=== PATIENT | male | born 1950 | race African-American/Black ===

== ENCOUNTER 2016-07-19 19:51 | Inpatient (IN) ==
--- NOTE | 2016-07-19 20:00 | Emergency Department Note ---
Disposition Clinical Impression: Acute exacerbation of CHF (congestive heart failure) Qualifiers: Congestive heart failure type: unspecified congestive heart failure type Qualified Code(s): I50.9 - Heart failure, unspecified Chest pain Qualifiers: Chest pain type: unspecified Qualified Code(s): R07.9 - Chest pain, unspecified Dyspnea Qualifiers: Dyspnea type: shortness of breath Qualified Code(s): R06.02 - Shortness of breath Disposition: Admitted As Inpatient Condition: Critical [facility]errals: [facility]Primary Care Provider[facility] - Forms: ED Satisfaction Letter Time of Disposition: 21:37 Chest Pain HPI - General Chief Complaint: ED Chest Pain Stated Complaint: CP Time Seen by Provider: 07/19/16 19:58 Vital Signs Reviewed: Yes Nursing Notes Reviewed: Yes - History of Present Illness HPI Narrative: Mr. Lugo, 65-year-old male, arrives from the [facility] via EMS with chief complaint of chest pain. Patient is having conversational dyspnea with substantial increased work of breathing thus limiting history of present illness. History of present illness obtained from [facility] paperwork: Chest pain with radiation to throat and neck onset 3 PM today with increased generalized swelling. PMH: Diabetes, hypertension, obesity, COPD, congestive heart failure, hepatitis C, paranoid schizophrenia [facility] paperwork shows no mention of CAD or ACS. Allergies: Thorazine, tomatoes- - Related Data Allergies Allergy/AdvReac Type Severity Reaction Status Date / Time chlorpromazine Allergy Anaphylaxis Verified 07/19/16 19:56 [From Thorazine] Limitations: ROS unobtainable due to patients medical condition Physical Exam Vital Signs Reviewed: Patient tachypneic and hypertensive. Not hypoxic on BiPAP. General: Patient is alert, oriented, and in acute distress - accessory muscle use for breathing with 2 word conversational dyspnea. HEENT: No facial asymmetry. Head is normocephalic and atraumatic. PERRLA, EOMI. trachea midline. Cardiovascular: Heart regular rate and rhythm without clicks, rubs, gallops, or murmurs. No JVD. PMI nondisplaced. Bilateral 2+ pedal edema. Nonpitting bilateral edema on dorsum of patient's hands. Bilateral radial and posterior tibial pulses equal and 2/4. Respiratory: Symmetric chest rise with poor respiratory effort. Bilateral breath sounds are diminished with scattered wheezing and bilateral basilar coarse lung sounds. Abdomen: Obese. Bowel sounds present normoactive x-4 quadrants. Abdomen is soft, nondistended, and nontender. To assess organomegaly given patient's body habitus. Psych: Patient's affect is appropriate for situation. Course Course Narrative: Per [facility] documentation: WBC 9.5 Hgb 9.8 HCT 29.3 NA 125 K5.0 CL 90 CO2 20 Glucose 207 BUNs 28 Creatinine 1.54 BNP 6396 Troponin 0.00 Patient has symptomatically improved with BiPAP and IV nitroglycerin which his blood pressure tolerated well. Spoke with the admitting hospitalist, Dr. Ochoa who agrees to accept the patient for acute exacerbation of congestive heart failure with concomitant rule out ACS. Vital Signs Temperature 97.7 F 07/19/16 19:56 Pulse Rate 78 07/19/16 19:56 Respiratory Rate 25 07/19/16 19:56 Blood Pressure 191/97 07/19/16 19:56 O2 Sat by Pulse Oximetry 92 07/19/16 19:56 Temperature 97.7 F 07/19/16 19:56 Pulse Rate 80 07/19/16 21:15 Respiratory Rate 22 07/19/16 21:15 Blood Pressure 183/91 07/19/16 21:15 O2 Sat by Pulse Oximetry 98 07/19/16 21:15 Oxygen Delivery Oxygen Delivery Bipap Heart Score - Score History: Slightly Suspicious EKG: Non Specific repolarisation Disturbance Age: 45-65 Risk Factors: Equal/Greater than 3 risk factor or history of atherosclerotic disease Troponin: Less than normal limit HEART Score Total: 4
[2016-07-19] MEDS ORDERED: Nitroglycerin 25 MG/250 ML INFUS..BTL IVC SCH (20:15)
--- NOTE | 2016-07-19 20:56 | Emergency Department Note ---
START Narrative - START START: I examined this patient and my medical decision-making was reviewed with the LOMBARDI DEVELOPER/PA/Advanced Practice Nurse/Resident Physician. I agree with the documented findings, disposition and treatment plan as described except to the extent set forth below. ED attending note: Patient seen with emergency medicine resident Dr Hudson. We independently evaluated the patient. We independently had [id number] contact with the patient. Please see a copy of his note for details of the history and physical, evaluation, management and disposition of this emergency Department patient. Briefly: 65-year-old transferred from the [facility] with a history of CAD stents and CHF presents with chest pain and negative troponin A BNP in the thousands and a chest x-ray consistent with CHF transferred here for ACS rule out. Patient is awake and alert and appropriate with stable vital signs placed on BiPAP. Patient was admitted to the hospitalist service. We have provided 40 minutes of critical care services for this patient with nitroglycerin drip. Admitted in stable condition for CHF exacerbation and chest pain acute coronary syndrome rule out.
[2016-07-19] MEDS ORDERED: Furosemide 40 MG/4 ML VIAL ONE (23:04)
[2016-07-19] MEDS ORDERED: Naloxone 0.4 MG/ML INJ IVP PRN (23:16)
[2016-07-19] MEDS ORDERED: Furosemide 40 MG/4 ML VIAL IVP ONE (23:21)
[2016-07-19] MEDS ORDERED: Acetaminophen 325 MG TABLET PO PRN (23:23)
[2016-07-19] MEDS ORDERED: Dextrose Gel 15 GM PO PRN ×2 (23:31)
[2016-07-19] MEDS ORDERED: D5% in Water 1,000 ML IVC PRN (23:31)
[2016-07-19] MEDS ORDERED: *HR* Dextrose 50 % in Water (Syg) 50 ML SYRINGE IVP PRN (23:31)
[2016-07-19] MEDS ORDERED: Insulin DETEMIR 100 UNIT/ML X5UNITS SQ SCH (23:45)
--- NOTE | 2016-07-19 23:51 | Internal Med History&Physical ---
Date of Encounter: 07/19/16 Time of Encounter: 23:43 Assessment and Plan (1) Acute respiratory failure Current visit: Yes Status: Acute Patient with respiratory distress, accessory muscle use, tachypnea, secondary to CHF exacerbation. Respiratory consulted for Bipap Stat ABG diuresis with lasix continuous dishwasher busser and pulse oximetry Qualifiers: Respiratory failure complication: unspecified whether with hypoxia or hypercapnia Qualified Code(s): J96.00 - Acute respiratory failure, unspecified whether with hypoxia or hypercapnia (2) Acute exacerbation of CHF (congestive heart failure) Current visit: Yes Status: Acute Patient with chest pain, respiratory distress. CXR showed CHF with mild edema. BNP elevated to 6396. Patient with BUE swelling. [facility] gave 325mg of aspirin, 40mg IV lasix. ED started Nitro drip and he was put on bipap. Another 40mg Lasix IVP given tonight. 40mg Lasix IVP BID Continuous Bipap continue nitro drip daily weights strict I/Os echocardiogram in the morning. Qualifiers: Congestive heart failure type: unspecified congestive heart failure type Qualified Code(s): I50.9 - Heart failure, unspecified (3) Chest pain Current visit: Yes Status: Acute Patient presented to [facility] with chest pain and difficulty breathing. EKG with no ischemic changes. Initial troponin 0.00. Patient denies any current chest pain. Chest pain was likely secondary to CHF exacerbation. NItro drip. continuous dishwasher busser serial troponins echocardiogram Qualifiers: Chest pain type: precordial pain Qualified Code(s): R07.2 - Precordial pain (4) Type 2 diabetes mellitus Current visit: Yes Status: Acute diabetic diet check Hgb A1c check blood sugars ACHS Basal dose of insulin HS plus sliding scale correction ACHS hypoglycemic protocol. Qualifiers: Diabetes mellitus complication status: with unspecified complications Diabetes mellitus chief [employer] insulin use: with penitentiary use Qualified Code(s) : E11.8 - Type 2 diabetes mellitus with unspecified complications; Z79.4 - roll wrapper (current) use of insulin (5) Electrolyte imbalance Current visit: Yes Status: Acute Patient with hyponatremia with sodium 125, likely secondary to fluid overload, and hyperkalemia with potassium 5.0. Hold home potassium supplements. Lasix for diuresis. expect electrolytes to correct with improvement in fluid balance. Recheck chemistry in the morning. (6) COPD (chronic obstructive pulmonary disease) Current visit: Yes Status: Acute Clinical picture consistent with CHF exacerbation, not COPD exacerbation. Duoneb treatments QID PRN Qualifiers: COPD type: unspecified COPD Qualified Code(s): J44.9 - Chronic obstructive pulmonary disease, unspecified (7) DVT prophylaxis Current visit: Yes Status: Acute anti-embolic stockings heparin 5000u SQ TID Internal Medicine - H&P: HPI Chief complaint: chest pain and difficulty breathing Admitted From: Emergency Dept Plans for Post Hospital Care: Home History of present illness: Mr. Lugo is a 65 year old male with hypertension, type 2 diabetes, COPD, CHF , Hep C and schizophrenia, was transferred to the ER from the [facility] with chest pain , increased swelling. Evaluation at the [facility] revealed CHF exacerbation with elevated BNP of 6396, CXR which showed CHF with mild edema. Labs also showed hyponatremia with sodium of 125, mild hyperkalmia with potassium of 5.0, DILSHAD with BUN of 28 and creatinine of 1.54, up from baseline creatinine of 1.02. Patient was given aspirin, 40mg of IV lasix, Solumedrol and a duoneb treatment at the [facility]. On my assessment, patient had increased work of breathing and was tachypnic. Unable to obtain review of systems. BUE swollen. Patient with crackles on auscultation. Respiratory rate 28, satting 98% on the Bipap. Heart has recular rate and rhythm, good peripheral pulses. Past Med Surg Social Fam HX - Past Medical History Medical history: CHF, COPD, diabetes, hepatitis, hyperlipidemia, hypertension Psychiatric history: anxiety, depression, schizophrenia - Social History Smoking Status: Former smoker Smokeless Tobacco Status: No Alcohol use: none Drug use: none - Family History Father History Unknown: Yes Internal Medicine - H&P: Meds Acetaminophen [Tylenol Arthritis] 650 mg PO TID PRN 07/19/16 [History] Amantadine [Symmetrel] 100 mg PO BID 07/19/16 [History] Aspirin [Lo-Dose Aspirin EC] 81 mg PO DAILY 07/19/16 [History] Atenolol [Tenormin] 75 mg PO HS 07/19/16 [History] Cholecalciferol (D-3) [Vitamin D] 3,000 unit PO DAILY 07/19/16 [History] Citalopram Hydrobromide [Celexa] 20 mg PO DAILY 07/19/16 [History] Docusate [Colace] 100 mg PO BID 07/19/16 [History] Galantamine HBr [Razadyne ER] 24 mg PO DAILY 07/19/16 [History] Haloperidol Decanoate 100 mg IM Q2W 07/19/16 [History] Insulin ASPART [Novolog Flexpen] 3 - 8 unit SQ TIDWM 07/19/16 [History] Insulin Glargine [Lantus] 25 unit SQ HS 07/19/16 [History] Lisinopril [Zestril] 40 mg PO DAILY 07/19/16 [History] Magnesium Oxide [Mag-Ox] 400 mg PO BID 07/19/16 [History] Metformin HCl [Fortamet] 1,000 mg PO BID 07/19/16 [History] Oxybutynin [Ditropan] 5 mg PO BID 07/19/16 [History] Polyvinyl Alcohol/Povidone [Artificial Tears Drops] 1 drop OP QID PRN 07/19/16 [ History] Potassium Chloride 20% [Potassium Chloride] 10 meq PO DAILY 07/19/16 [History] Quetiapine Fumarate [SEROquel] 300 mg PO HS 07/19/16 [History] amLODIPine [Norvasc] 10 mg PO DAILY 07/19/16 [History] hydroCHLOROthiazide [Hydrochlorothiazide] 25 mg PO DAILY 07/19/16 [History] Allergies chlorpromazine [From Thorazine] Allergy (Verified 07/19/16 19:56) Anaphylaxis ROS unobtainable: other All Systems PM: A 10-system review of systems was performed and is negative for pertinent findings except as documented above in the HPI. Review of systems: Unable to obtain due to patient's conversational dyspnea, increased work of breathing. - Constitutional Vitals: Temp Pulse Resp BP Pulse Ox 97.9 F 79 18 168/93 97 07/19/16 23:02 07/19/16 23:02 07/19/16 23:07 07/19/16 23:07 07/19/16 23:02 General appearance: Present: mild distress, A&O X 3 - Head Head exam: Present: atraumatic, normocephalic - Eye Eye exam: Present: PERRL, conjuntiva pink, sclera anicteric Pupils: Present: PERRL - Neck Neck exam general surgery: Present: supple, trachea midline. Absent: lymphadenopathy - Respiratory Respiratory exam: Present: accessory muscle use, rales, respiratory distress, tachypnea. Absent: rhonchi, wheezes - Cardiovascular Cardiovascular exam: Present: RRR, +S1, +S2. Absent: diastolic murmur, gallop, rubs, systolic murmur - GI/Abdominal GI/Abdominal exam: Present: normal bowel sounds, soft, no peritoneal signs. Absent: distended, tenderness - Extremities Exam Extremities exam: Present: pedal edema (Trace BLE edema), warm, radial pulses palpable and symetrical. Absent: calf tenderness, cyanotic - Expanded Upper Extremities Exam Upper Arm exam: Present: swelling Forearm wrist exam: Present: swelling Hand wrist exam: Present: swelling - Neurological Exam Neurological exam: Present: CN II-XII intact, oriented X3, no focal deficits. Absent: facial droop, speech deficit - Skin Skin exam: Present: dry, intact Internal Med - H&P Results - Labs Labs: [facility] from [facility]: Hgb 9.8 Hct 29.3 WBC 9.5 Plt 249 Na 125 K 5.0 Cl 90 CO2 20 BUN 28 Cr 1.54 Glu 207 BNP 6396 Trop 0.00 - Diagnostic Studies Chest x-ray Additional comments: [facility]R from [facility]: Impression: CHF with mild edema
[2016-07-20] MEDS ORDERED: Ipratropium/Albuterol Neb 3 ML IH PRN (00:07)
[2016-07-20] MEDS ORDERED: *HR* Promethazine 25 MG/ML VIAL IVP ONE (04:17)
[2016-07-20] MEDS ORDERED: Ondansetron 4 MG/2 ML VIAL IVP ONE (04:30)
[2016-07-20 05:23] LABS: Hematocrit 25.6 % (37.5-50.1); Immature Granulocytes % 0.5 % (0-4); Lymphocytes # 0.4 K/mcL (0.6-4.6); Lymphocytes % 4.3 %; Mean Corpuscular HGB Conc 35.2 g/dL (31.6-35.5); Mean Corpuscular Hemoglobin 30.1 pg (28.0-33.3); Mean Corpuscular Volume 85.6 fL (83.0-100.0); Mean Platelet Volume 10.2 fL (9.4-12.4); Monocytes # 0.6 K/mcL (0.0-1.3); Monocytes % 6.2 %; Neutrophils # 7.8 K/mcL (1.6-8.9); Platelet Count 224 K/mcL (140-400); Red Blood Count 2.99 M/mcL (4.19-5.50); Red Cell Distribution Width 12.7 % (11.5-14.5)
[2016-07-20 05:42] LABS: BUN/Creatinine Ratio 27 (6-26); Blood Urea Nitrogen 37 mg/dL (8-26); Calcium 9.2 mg/dL (8.6-10.8); Carbon Dioxide 21 mEq/L (19-29); Chloride 87 mEq/L (98-109); Glucose 315 mg/dL (70-99); Magnesium 1.8 mg/dL (1.6-2.6); Osmolality,Calculated 271 (280-300); Potassium 4.3 mEq/L (3.5-4.5); eGFR For African Americans > 60 (> 60); eGFR For Non-African Americans 52 (> 60)
[2016-07-20] MEDS: *HR* Heparin 5,000 UNIT/ML VIAL SQ SCH ×3 (05:44→22:18)
[2016-07-20] MEDS ORDERED: Furosemide 20 MG/2 ML VIAL IVP ONE (05:47)
[2016-07-20 05:51] LABS: Hemoglobin A1C 5.7 %
[2016-07-20 05:52] LABS: Sodium 120 mEq/L (136-145)
[2016-07-20] MEDS ORDERED: Insulin LISPRO 300 UNITS/3 ML VIAL SQ SCH ×2 (07:30→21:00)
[2016-07-20] MEDS: amLODIPine 5 MG TABLET PO SCH (08:33)
[2016-07-20] MEDS: Magnesium Oxide 400 MG TABLET PO SCH ×2 (08:33→22:15)
[2016-07-20] MEDS: Furosemide 40 MG/4 ML VIAL IVP SCH ×2 (08:34→16:55)
[2016-07-20] MEDS: Aspirin Enteric Coated 81 MG Tablet PO SCH (08:34)
[2016-07-20] MEDS ORDERED: Galantamine Hbr [Razadyne Er] 24 MG PO SCH (09:00)
[2016-07-20 10:21] LABS: Sodium, Urine < 20.0 mEq/L
--- NOTE | 2016-07-20 10:29 | Nephrology Consult Note ---
Date of Encounter: 07/20/16 Time of Encounter: 10:28 Assessment and Plan (1) Hyponatremia Current Visit: Yes Status: Acute Patient initially presented to the [place] and had sodium of 125, repeat labs at [facility] revealed sodium of 120. Patient was given a total of 80mg lasix since admission and no additional fluids. Hyponatremia etiology is multifactorial. Including volume overload status due to CHF exacerbation vs DILSHAD vs home medications including HCTZ and psych meds. Though without fluids and sodium change from 125 to 120 within under 12 hours is suspicious for more acute process. Workup per plan below. Urine sodium, Urine Cr, Serum osm, Urine osm ordered. Continue with fluid restriction 1.5 L/d TSH and random cortisol ordered. Continue with lasix. Hold home HCTZ. Echo ordered Monitor strict I&Os. Sodium checks q4h. Continue with renal protective strategy, avoid nephrotoxic agents, no urgent dialysis needed. (2) CHF (congestive heart failure) Current Visit: Yes Status: Acute Patient with known history of CHF presented to the [place] with complaint of chest pain and dyspnea in addition to swelling. Continue per plan of Hospitalist. Qualifiers: Congestive heart failure type: unspecified congestive heart failure type Congestive heart failure chronicity: acute on chronic Qualified Code(s): I50.9 - Heart failure, unspecified (3) Hypertension Current Visit: Yes Status: Chronic _Patient with a known history of hypertension. Bp 149/81 Continue per plan of hospitalist. Discontinue home hctz as this may be contributing to hyponatremia. Qualifiers: Hypertension type: essential hypertension Qualified Code(s): I10 - Essential (primary) hypertension (4) Type 2 diabetes mellitus Current Visit: Yes Status: Chronic Patient with known history of type II diabetes. Continue per plan of hospitalist. Qualifiers: Diabetes mellitus complication status: with kidney complications Diabetes mellitus complication detail: with chronic kidney disease Diabetes mellitus usp insulin use: with moth exterminator use Chronic kidney disease stage: stage 2 (mild) Qualified Code(s): E11.22 - Type 2 diabetes mellitus with diabetic chronic kidney disease; N18.2 - Chronic kidney disease, stage 2 (mild); Z79.4 - watermaster (current) use of insulin (5) Schizophrenia Current Visit: Yes Status: Acute Known history of Paranoid schizophrenia upon review of records from [place] and history of si. On home Celexa, Haploperidol, and Seroquel. Medications may be contributing to hyponatremia, however, we will continue workup and rule out other causes prior to changing stable home medication regimen. Qualifiers: Schizophrenia type: paranoid schizophrenia Qualified Code(s): F20.0 - Paranoid schizophrenia (6) Swelling of both upper extremities Current Visit: Yes Status: Acute Exam reveals 1+ pitting edema bilateral upper extremities. Reportedly x 1 week according to patient. Minimal edema of lower extremities. Ordered upper extremity doppler to rule out thrombosis, though unusual if bilateral. History of Present Illness - Reason for Consult Consult date: 07/20/16 hyponatremia Requesting physician: Mook Roper - Chief Complaint CHF exacerbation, Hyponatremia - History of Present Illness Mr. Lugo is a 65 year old male with history of hypertension, type II diabetes , COPD, CHF unspecified, Hepatitis C, and schizophrenia who presented to the ED from the [place] with complaint of chest pain and shortness of breath. BNP was elevated at 6396, CXR revealed mild edema. Patient denies history of kidney disease. Patient reports increasing amounts of fluid intake over the past week and increased swelling of upper extremities for the past week. Patient was determined to have a sodium level of 120 on arrival, decreased from initial labs from the [place] at 125. Patient was admitted for further evaluation of CHF exacerbation. Nephrology was consulted to evaluate patient for hyponatremia and acute kidney injury. Patient denies fevers, chills, sweat, changes in vision or hearing, nausea, vomiting, abdominal pain, changes in bowels or bladder, dysuria, hematuria, oligouria, weakness, or loss of sensation. Past Med Surg Social Fam HX - Past Medical History Medical history: CHF, COPD, diabetes, hepatitis, hyperlipidemia, hypertension Psychiatric history: anxiety, depression, schizophrenia - Social History Smoking Status: Former smoker Smokeless Tobacco Status: No Alcohol use: none Drug use: none - Family History Father History Unknown: Yes Medications and Allergies Acetaminophen [Tylenol Arthritis] 650 mg PO TID PRN 07/19/16 [History] Amantadine [Symmetrel] 100 mg PO BID 07/19/16 [History] Aspirin [Lo-Dose Aspirin EC] 81 mg PO DAILY 07/19/16 [History] Atenolol [Tenormin] 75 mg PO HS 07/19/16 [History] Cholecalciferol (D-3) [Vitamin D] 3,000 unit PO DAILY 07/19/16 [History] Citalopram Hydrobromide [Celexa] 20 mg PO DAILY 07/19/16 [History] Docusate [Colace] 100 mg PO BID 07/19/16 [History] Galantamine HBr [Razadyne ER] 24 mg PO DAILY 07/19/16 [History] Haloperidol Decanoate 100 mg IM Q2W 07/19/16 [History] Insulin ASPART [Novolog Flexpen] 3 - 8 unit SQ TIDWM 07/19/16 [History] Insulin Glargine [Lantus] 25 unit SQ HS 07/19/16 [History] Lisinopril [Zestril] 40 mg PO DAILY 07/19/16 [History] Magnesium Oxide [Mag-Ox] 400 mg PO BID 07/19/16 [History] Metformin HCl [Fortamet] 1,000 mg PO BID 07/19/16 [History] Oxybutynin [Ditropan] 5 mg PO BID 07/19/16 [History] Polyvinyl Alcohol/Povidone [Artificial Tears Drops] 1 drop OP QID PRN 07/19/16 [ History] Potassium Chloride 20% [Potassium Chloride] 10 meq PO DAILY 07/19/16 [History] Quetiapine Fumarate [SEROquel] 300 mg PO HS 07/19/16 [History] amLODIPine [Norvasc] 10 mg PO DAILY 07/19/16 [History] hydroCHLOROthiazide [Hydrochlorothiazide] 25 mg PO DAILY 07/19/16 [History] Allergies chlorpromazine [From Thorazine] Allergy (Verified 07/19/16 19:56) Anaphylaxis Review of Systems Constitutional: weight gain, no chills, no fever(s), no headache(s), no malaise , no weakness Nose, mouth and throat: as per HPI, no dysphagia, no headache(s) Cardiovascular: as per HPI, chest pain, dyspnea, edema, no radiating jaw, neck or arm pain, no lightheadedness, no palpitations, no pedal edema, no syncope Respiratory: dyspnea, wheezing, no pain on inspiration, no excessive phlegm production, no change in phlegm color Gastrointestinal: as per HPI, no abdominal pain, no bloating, no change in bowel habits, no constipation, no diarrhea, no nausea, no vomiting Genitourinary Male: as per HPI, no dysuria, no flank pain, no hematuria, no urinary frequency, no urinary hesitancy, no urinary incontinence Musculoskeletal: as per HPI, no muscle cramps, no neck pain, no numbness Integumentary: as per HPI, swelling, no new lesions, no pruritus, no rash Neurological: as per HPI, no confusion, no headache(s), no numbness, no syncope , no tingling, no weakness Exam - Vital Signs Vital signs: Initial Vital Signs Temp Pulse Resp BP Pulse Ox 97.7 F 78 25 191/97 92 07/19/16 19:56 07/19/16 19:56 07/19/16 19:56 07/19/16 19:56 07/19/16 19:56 Vital Signs - Last 8 Hours Temp Pulse Resp BP Pulse Ox 07/20/16 10:16 164/90 07/20/16 09:19 86 24 195/95 98 07/20/16 07:30 78 24 158/88 97 07/20/16 04:15 98 F 81 22 153/86 96 Intake and Output 07/19/16 07/20/16 07/20/16 23:59 07:59 15:59 Intake Total 480 / 480 Output Total 800 / 800 Balance -800 / -800 480 / 480 Intake: Oral 480 / 480 Output: Urine 800 / 800 Urethral (Simmons) 200 / 200 Other: Meal Breakfast Percent of Meal Consumed 95% Weight 98.7 kg Blood Glucose* 363 Patient Weight 07/20/16 23:59 Weight 98.7 kg - General Appearance General appearance: well-developed, well-nourished, appears started age, obese EENT: PERRL, mucous membranes moist Neck: no JVD, no thyromegaly, no carotid bruit, supple Respiratory: wheezing Cardiology: no murmurs, regular rate, regular rhythm, normal S1, normal S2 Gastrointestinal: normoactive bowel sounds, no tenderness, no guarding, obese Integumentary: no rash, warm and dry Neurologic: no focal deficit, no asterixis, alert and oriented x3, strength 5/5 , CN 3-12 intact Musculoskeletal: no deformities, no erythema, no cyanosis, no clubbing Additional Comments: 1+ pitting edema bilaterally upper extremities. minimal nonpitting lower extremity edema. Psychiatric: cooperative Results - Lab Results 07/20/16 05:07 07/20/16 05:07 Most recent lab results Calcium 9.2 mg/dL (8.6-10.8) 07/20/16 05:07 Magnesium 1.8 mg/dL (1.6-2.6) 07/20/16 05:07 Urine Creatinine 73 mg/dL 07/20/16 09:29 Urine Sodium < 20.0 mEq/L 07/20/16 09:29 Consult Discharge Plan - Plan Referrals: [facility] [Primary Care Provider] - 08/03/16 1:30 pm (THIS APPOINTMENT IS AT THE DISCHARGE FOLLOW UP CLINIC) Gaudencio Thao DO [Partnered Physician] - (OFFICE WILL CALL PATIENT AT HOME WITH AN APPOINTMENT)
[2016-07-20] MEDS: Ipratropium/Albuterol Neb 3 ML IH SCH ×3 (11:12→22:19)
--- NOTE | 2016-07-20 11:19 | Internal Med Progress Note ---
Date of Encounter: 07/20/16 Time of Encounter: 09:15 - Assessment and plan (1) Acute exacerbation of CHF (congestive heart failure) Current Visit: Yes Status: Acute Assessment and plan: Clinical getting better. Awaiting 2-D echocardiogram. Continue IV Lasix. High risk for complications due to use of IV Lasix and need for BiPAP Qualifiers: Congestive heart failure type: unspecified congestive heart failure type Qualified Code(s): I50.9 - Heart failure, unspecified (2) Chest pain Current Visit: Yes Status: Resolved Assessment and plan: Likely related to congestive heart failure. This has subsided now. Will wean off nitro drip. Troponins have been negative. Qualifiers: Chest pain type: precordial pain Qualified Code(s): R07.2 - Precordial pain (3) Acute respiratory failure Current Visit: Yes Status: Acute Assessment and plan: Improving clinically. Continue to use BiPAP as needed. Also has underlying COPD and was bronchospastic this morning. Continue bronchodilator treatments. Qualifiers: Respiratory failure complication: hypoxia Qualified Code(s): J96.01 - Acute respiratory failure with hypoxia (4) Type 2 diabetes mellitus Current Visit: Yes Status: Chronic Assessment and plan: Blood sugars remain elevated. On Levemir and sliding scale insulin. Will increase insulin regimen further. Qualifiers: Diabetes mellitus complication status: with kidney complications Diabetes mellitus complication detail: with chronic kidney disease Diabetes mellitus snf insulin use: with termite exterminator helper use Chronic kidney disease stage: stage 2 (mild) Qualified Code(s): E11.22 - Type 2 diabetes mellitus with diabetic chronic kidney disease; N18.2 - Chronic kidney disease, stage 2 (mild); Z79.4 - penitentiary (current) use of insulin (5) Electrolyte imbalance Current Visit: Yes Status: Acute Assessment and plan: With hyponatremia and hypochloremia. Consulted nephrology. Likely related to multiple medications that the patient is receiving including Lasix. We will check urine electrolytes. (6) COPD (chronic obstructive pulmonary disease) Current Visit: Yes Status: Chronic Assessment and plan: Patient has chronic COPD. On bronchodilator nebs. We will change him to scheduled as patient is having wheezing currently. Qualifiers: COPD type: unspecified COPD Qualified Code(s): J44.9 - Chronic obstructive pulmonary disease, unspecified (7) DVT prophylaxis Current Visit: Yes Status: Acute Assessment and plan: With subcutaneous heparin (8) Hyponatremia Current Visit: Yes Status: Acute Assessment and plan: Nephrology consultation. Will follow recommendations. Check urine sodium levels. (9) Hypertension Current Visit: Yes Status: Chronic Assessment and plan: Blood pressure is uncontrolled. Resume lisinopril. Continue to monitor blood pressure closely and adjust antihypertensive regimen accordingly. Qualifiers: Hypertension type: essential hypertension Qualified Code(s): I10 - Essential (primary) hypertension - Subjective Interval history: Patient is awake and alert. Was nauseated over last night and had episodes of emesis. However he is feeling much better this morning. He is able to breathe much better. Denies any fever or chills. Chest pain has resolved. - Constitutional Vitals: Temp Pulse Resp BP Pulse Ox 98 F 86 24 164/90 98 07/20/16 04:15 07/20/16 09:19 07/20/16 09:19 07/20/16 10:16 07/20/16 09:19 General appearance: Present: cooperative, mild distress, A&O X 3, answers questions appropriately - Neck Neck exam general surgery: Present: supple, trachea midline. Absent: lymphadenopathy - Respiratory Respiratory exam: Present: prolonged expiratory phase, rhonchi, wheezes. Absent : accessory muscle use, rales - Cardiovascular Cardiovascular exam: Present: RRR, +S1, +S2. Absent: diastolic murmur, gallop, rubs, systolic murmur - GI/Abdominal GI/Abdominal exam: Present: distended, normal bowel sounds, soft, no peritoneal signs. Absent: tenderness - Extremities Exam Extremities exam: Present: warm, radial pulses palpable and symetrical. Absent : calf tenderness, cyanotic, pedal edema - Neurological Exam Neurological exam: Present: CN II-XII intact, oriented X3, no focal deficits. Absent: facial droop, speech deficit - Skin Skin exam: Present: dry, intact Internal Medicine: Result - Labs CBC & Chem 7: 07/20/16 05:07 07/20/16 05:07 Labs: Short CBC 07/20/16 Range/Units 05:07 WBC 8.8 (4.3-11.1) K/mcL Hgb 9.0 L (12.9-16.9) g/dL Hct 25.6 L (37.5-50.1) % Plt Count 224 (140-400) K/mcL Neutrophils # 7.8 (1.6-8.9) K/mcL BMP 07/20/16 05:07 Sodium 120 L* Potassium 4.3 Chloride 87 L Carbon Dioxide 21 BUN 37 H Creatinine 1.37 H Glucose 315 H Calcium 9.2 Cardiac Enzymes 07/20/16 Range/Units 05:07 Troponin I 0.02 (0-0.03) ng/mL - Impressions Impressions Chest X-Ray 07/20/16 00:07 IMPRESSION: Mild airspace disease, most compatible with pulmonary edema and/ or pneumonia. D/ / Hamilton Santos MD / Hamilton Santos MD Interpreting Provider: Hamilton Santos MD X-Ray 07/20/16 04:17 IMPRESSION: Gaseous distention of small bowel loops throughout the abdomen may be secondary to an ileus. No evidence of obstruction. D/ / Hamilton Santos MD / Hamilton Santos MD Interpreting Provider: Hamilton Santos MD Consult Discharge Plan - Plan [facility]errals: [facility] [Primary Care Provider[facility] - 08/03/16 1:30 pm (THIS APPOINTMENT IS AT THE DISCHARGE FOLLOW UP CLINIC) Gaudencio Thao, [Partnered Physician] - (OFFICE WILL CALL PATIENT AT HOME WITH AN APPOINTMENT) - Attending Attestation This document has been at least partially created by [employer] recognition technology by Dr. Roper. Errors in grammar, wording or other phrases may exist. If errors are found after the documentation is signed, they will be addressed individually in the addendum section of this document when appropriate.
--- NOTE | 2016-07-20 11:39 | ECHO - Doppler Report ---
Echocardiogram Name: Adam Lugo Date of Study: 07/20/2016 Date: 1950 Ht: 68.0 in Medical Record#: [id number] Age: 65 Wt: 217.0 lb Gender: Male BSA: 2.12 Order #: [id number] Location: [facility] Room #: 2N04 Reading Physician: Nichol Calhoun DO Scrap Preparer: Iesha Mathew RDCS Ordering Physician: Nathalia Tipton CNP Primary Physician: [facility] Indications: Congestive heart failure Impressions: LVEF 65%. Normal left ventricular size and systolic function. There is evidence of moderate diastolic dysfunction of the left ventricle. Normal right ventricular size and function. No significant valvular dysfunction. Mild pulmonary hypertension. Left Ventricular Wall Motion: Rest Echo Findings All wall segments showed normal motion. Findings: Study Quality * Technically adequate exam. ECG Findings * Normal sinus rhythm. Left Ventricle * LVEF 65%. * Moderate left ventricular diastolic dysfunction. * Normal LV chamber size, wall thickness and function. Aorta * Normally sized aortic root. Left Atrium * Normal left atrial size. Aortic Valve * No aortic regurgitation. * Trileaflet aortic valve. * Normal aortic valve structure. * No aortic stenosis. Mitral Valve * No mitral regurgitation. * No mitral stenosis. * Normal mitral structure. Tricuspid Valve * Tricuspid valve not well visualized. * Trace tricuspid regurgitation. * Estimated RA pressure is 8 mmHg. * Estimated RVSP is 39 mmHg. * Mild pulmonary hypertension. Pulmonic Valve * Pulmonic valve is not well visualized. * No pulmonic stenosis. * Trace pulmonic regurgitation. Pulmonary Artery * Pulmonary artery not well visualized. Right Atrium * Normal right atrial size. Right Ventricle * Normal right ventricular structure and function. Not well visualized in subcostal view. Normal Lat S Samuel. Interatrial Septum * No evidence of PFO by color Doppler. IVC * The IVC is not dilated. * < 50% respiratory change. Pericardium * There is no pericardial effusion present. History Hypertension Diabetes Hypercholesteremia Congestive Heart Failure Measurements: BP: 153/ 86 2D Normal Values RVIDd: 2.80 cm <2.7 cm IVSd: .90 cm 0.6 - 1.0 cm LVIDd: 4.60 cm 3.7 - 5.6 cm LVPWd: 1.10 cm 0.6 - 1.1 cm LVIDs: 2.90 cm 1.5 - 3.6 cm AO: 2.40 cm < 4.0 cm LA: 3.00 cm 2.0 - 4.0cm %FS: 37.00 cm >25 % LA volume: 36 Mitral Valve Peak E:1.08 m/sec Peak A:.98 m/sec E/A Ratio:1.1 Peak E' Lat Samuel:9.75 cm/s Peak E' Med Samuel:9.46 cm/s E/E' Lat Ratio:11.1 E/E' Med Ratio:11.4 Tricuspid Valve TV Regurg Peak Grad: 31.00mmHg TV Regurg Peak Samuel: 2.77m/sec Updated by Nichol Calhoun on 07/20/2016 11:32:22 AM electronically signed on 07/20/2016 11:33:50 AM with status of Final Wall Motion Elizabeth: 1=Normal, 2=Hypokinesis, 3=Akinesis, 4=Dyskinesis, 5=Aneurysmal, 6=Hyperkinetic, X=Not Visualized (Blank)=Missing
[2016-07-20] MEDS: Insulin LISPRO 300 UNITS/3 ML VIAL SQ SCH ×3 (12:07→22:17)
[2016-07-20 14:56] LABS: Calcium 9.6 mg/dL (8.6-10.8); Potassium 4.4 mEq/L (3.5-4.5)
[2016-07-20 15:19] LABS: Thyroid Stimulating Hormone 1.573 mcIU/mL (0.350-4.840)
--- NOTE | 2016-07-20 17:28 | Electrocardiograph Report ---
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
[2016-07-20 18:35] LABS: Calcium 9.3 mg/dL (8.6-10.8); Potassium 4.1 mEq/L (3.5-4.5)
[2016-07-20] MEDS ORDERED: *HR* Labetalol 20 MG/4 ML SYRINGE IVP PRN (19:42)
[2016-07-20 22:03] LABS: Calcium 9.5 mg/dL (8.6-10.8); Potassium 4.7 mEq/L (3.5-4.5)
[2016-07-20] MEDS: Insulin DETEMIR 100 UNIT/ML X5UNITS SQ SCH (22:15)
[2016-07-21 02:01] LABS: BUN/Creatinine Ratio 33 (6-26); Blood Urea Nitrogen 46 mg/dL (8-26); Calcium 8.8 mg/dL (8.6-10.8); Carbon Dioxide 26 mEq/L (19-29); Chloride 91 mEq/L (98-109); Glucose 178 mg/dL (70-99); Osmolality,Calculated 274 (280-300); Potassium 3.9 mEq/L (3.5-4.5); Sodium 124 mEq/L (136-145); eGFR For African Americans > 60 (> 60); eGFR For Non-African Americans 52 (> 60)
[2016-07-21] MEDS: Ipratropium/Albuterol Neb 3 ML IH SCH ×4 (04:08→21:02)
[2016-07-21] MEDS: *HR* Heparin 5,000 UNIT/ML VIAL SQ SCH ×3 (06:03→23:02)
[2016-07-21 06:26] LABS: BUN/Creatinine Ratio 33 (6-26); Blood Urea Nitrogen 43 mg/dL (8-26); Calcium 8.9 mg/dL (8.6-10.8); Carbon Dioxide 22 mEq/L (19-29); Chloride 94 mEq/L (98-109); Glucose 108 mg/dL (70-99); Osmolality,Calculated 273 (280-300); Sodium 126 mEq/L (136-145); eGFR For African Americans > 60 (> 60); eGFR For Non-African Americans 56 (> 60)
[2016-07-21 06:40] LABS: Potassium 4.7 mEq/L (3.5-4.5)
[2016-07-21] MEDS: Insulin LISPRO 300 UNITS/3 ML VIAL SQ SCH ×4 (08:42→20:40)
[2016-07-21] MEDS: Furosemide 40 MG/4 ML VIAL IVP SCH (08:57)
[2016-07-21] MEDS: amLODIPine 5 MG TABLET PO SCH ×2 (08:57→11:20)
[2016-07-21] MEDS: Magnesium Oxide 400 MG TABLET PO SCH ×3 (08:57→20:41)
[2016-07-21] MEDS: Lisinopril 20 MG TABLET PO SCH ×2 (08:57→11:20)
[2016-07-21] MEDS: Aspirin Enteric Coated 81 MG Tablet PO SCH ×2 (08:57→11:21)
--- NOTE | 2016-07-21 08:57 | Nephrology Progress Note ---
Date of Encounter: 07/21/16 Time of Encounter: 08:54 - Assessment and Plan (1) Hyponatremia Current Visit: Yes Status: Acute Hypervolemic, hyponatremia Patient was determined to have sodium of 125 at [facility], 120 at [place] upon arrival, received 80 lasix and no additional fluids. Sodium levels have been 126, 124, 123, 124, 126 , and 128 , only intervention has been lasix. Urine Cr 73 Urine sodium <20 Urine uric acid 14 Urine urea nitrogen 552 Serum osm 289 Urine output 2700mL/24 hours, -2L fluid balance Hyponatremia etiology is multifactorial. Initially it was suspected that hyponatremia was due to volume overload status secondary to CHF exacerbation, though Echo completed yesterday revealed LV function normal at 65% and moderate LV diastolic dysfunction. Review of lab results as noted above suggest possibly patient had increased fluid intake prior to arrival vs a possible underlying renal insufficiency vs DILSHAD vs home medications including HCTZ and psych meds vs Cirrhosis. We suspect that the 120 sodium level was a lab error as patient's repeat sodium was at 126 after lasix only. Though, with the fluid overload status and history of Hepatitis C in addition to the somnolence overnight and this morning, Cirrhosis is currently being considered. Urine osm pending. Repeat serum osm and urine osm ordered. UA ordered. Renal ultrasound ordered. CMP ordered to check liver function and albumin level. Hepatitis profile ordered, may need quantitative if positive. RUQ ultrasound ordered per Hospitalist. Stat Ammonia level ordered ude to somnolence and history [facility]. Continue with diuresis, monitor kidney function, strict I&Os. Continue with renal protective strategy, avoid nephrotoxins, no urgent dialysis needed. Maximum correction of sodium 6-8mEq/24 hours. (2) CHF (congestive heart failure) Current Visit: Yes Status: Acute Patient with known history of CHF presented to the [facility] with complaint of chest pain and dyspnea in addition to swelling. Echo returned back normal LV at 65% and moderate LV diastolic dysfunction. Continue per plan of Hospitalist. Qualifiers: Congestive heart failure type: unspecified congestive heart failure type Congestive heart failure chronicity: acute on chronic Qualified Code(s): I50.9 - Heart failure, unspecified (3) Hypertension Current Visit: Yes Status: Chronic Known history of hypertension Bp 153/97, rate 68bpm Continue per plan of Hospitalist. Discontinue home hctz as this may be contributing to hyponatremia. Qualifiers: Hypertension type: essential hypertension Qualified Code(s): I10 - Essential (primary) hypertension (4) Type 2 diabetes mellitus Current Visit: Yes Status: Chronic Known history of type II diabetes Continue per Hospitalist plan Qualifiers: Diabetes mellitus complication status: with kidney complications Diabetes mellitus complication detail: with chronic kidney disease Diabetes mellitus [facility] insulin use: with marine oil terminal superintendent use Chronic kidney disease stage: stage 2 (mild) Qualified Code(s): E11.22 - Type 2 diabetes mellitus with diabetic chronic kidney disease; N18.2 - Chronic kidney disease, stage 2 (mild); Z79.4 - rat exterminator (current) use of insulin (5) Schizophrenia Current Visit: Yes Status: Acute Known history of paranoid schizophrenia upon review of records from [facility] and history fo . On home Celexa, Haloperidol, and Seroquel Medications may be contributing to hyponatremia, however, we will continue workup and rule out other causes prior to changing stable home medication regimen. Qualifiers: Schizophrenia type: paranoid schizophrenia Qualified Code(s): F20.0 - Paranoid schizophrenia (6) Swelling of both upper extremities Current Visit: Yes Status: Acute Exam continues to reveal 1+ pitting edema bilateral upper extremities. Venous doppler was negative for DVTs. Subjective Principal diagnosis: Hyponatremia Interval history: Patient is significantly more solmnolent this morning and difficult to keep awake for enough time to get a history overnight. Spoke with nurse who reports patient has been very sleepy. Patient reported some troubles with breathing, though nurse reports they have decreased the high flow oxygen from 8L down to 6L. Patient denies chest pain, nausea, vomiting, abdominal pain, changes in bowels or bladder, weakness, or loss of sensation. Sodium levels 126, 124, 123, 124, 126, 128 over the past 24 hours. Objective - Vital Signs Vital signs: Vital Signs Temp Pulse Resp BP Pulse Ox 07/21/16 07:21 98.4 F 68 18 153/97 93 07/21/16 05:08 98.6 F 66 17 158/93 94 07/21/16 04:22 65 144/93 99 07/21/16 04:11 18 95 07/21/16 00:21 99.3 F 68 20 155/83 94 07/21/16 00:16 69 155/83 93 07/20/16 22:42 87 07/20/16 22:20 95 07/20/16 21:30 99.2 F 84 19 93 07/20/16 19:37 86 20 169/84 94 07/20/16 16:46 20 94 07/20/16 15:22 99.4 F 77 20 174/92 90 07/20/16 11:19 98.6 F 77 22 149/81 99 07/20/16 10:16 164/90 07/20/16 09:19 86 24 195/95 98 Intake and Output 07/20/16 07/21/16 07/21/16 23:59 07:59 15:59 Intake Total 480 / 480 Output Total 1000 / 1000 800 / 800 Balance -520 / -520 -800 / -800 Intake: Oral 480 / 480 Output: Urine 0 / 0 Catheter 1000 / 1000 800 / 800 Other: Meal Dinner Percent of Meal Consumed 90% Weight 97.2 kg Blood Glucose* 227 120 Patient Weight 07/21/16 23:59 Weight 97.2 kg - General Appearance General appearance: Present: well-developed, well-nourished, appears started age , obese EENT: Present: PERRL, mucous membranes dry, hearing intact Neck: Present: no JVD, no carotid bruit, supple Respiratory: Present: course breath sounds Cardiology: Present: no murmurs, regular rate, regular rhythm, normal S1, normal S2 Additional Comments: 1+ pitting edema bilateral upper extremities, minimal bilateral lower extremity edema noted. Gastrointestinal: Present: normoactive bowel sounds, no tenderness, no guarding , no organomegaly, no masses, obese Integumentary: Present: no rash, warm and dry Neurologic: Present: no focal deficit, no asterixis, alert and oriented x3, strength 5/5, CN 3-12 intact Musculoskeletal: Present: no deformities, no erythema, no cyanosis, no clubbing Psychiatric: Present: mood/affect appropriate, cooperative - Lab 07/20/16 05:07 07/21/16 09:38 Most recent lab results Calcium 8.9 mg/dL (8.6-10.8) 07/21/16 05:47 Magnesium 1.8 mg/dL (1.6-2.6) 07/20/16 05:07 Urine Creatinine 73 mg/dL 07/20/16 09:29 Urine Sodium < 20.0 mEq/L 07/20/16 09:29 - VTE Documentation of Mechanical Device: Graduated compression elastic hosiery Consult Discharge Plan - Plan [facility]errals: [facility] [Primary Care Provider] - 08/03/16 1:30 pm (THIS APPOINTMENT IS AT THE DISCHARGE FOLLOW UP CLINIC) Gaudencio Thao DO [Partnered Physician] - (OFFICE WILL CALL PATIENT AT HOME WITH AN APPOINTMENT)
[2016-07-21] MEDS: Insulin DETEMIR 100 UNIT/ML X5UNITS SQ SCH ×2 (08:58→20:40)
[2016-07-21 10:02] LABS: Alanine Aminotransferase 33 Units/L (0-55); Albumin/Globulin Ratio 0.9 (1.1-2.2); Alkaline Phosphatase 127 Units/L (38-126); Aspartate Amino Transferase 31 Units/L (5-34); BUN/Creatinine Ratio 31 (6-26); Bilirubin,Total 0.6 mg/dL (0.2-1.2); Blood Urea Nitrogen 39 mg/dL (8-26); Calcium 9.2 mg/dL (8.6-10.8); Carbon Dioxide 24 mEq/L (19-29); Chloride 94 mEq/L (98-109); Globulin 3.4 g/dL (2.4-3.5); Glucose 103 mg/dL (70-99); Osmolality,Calculated 276 (280-300); Sodium 128 mEq/L (136-145); Total Protein 6.4 g/dL (6.0-8.3); eGFR For African Americans > 60 (> 60); eGFR For Non-African Americans 59 (> 60)
[2016-07-21 10:05] LABS: Potassium 4.4 mEq/L (3.5-4.5)
[2016-07-21 10:56] LABS: Hepatitis A Antibody IgM Nonreactive (Nonreactive); Hepatitis B Core IgM Nonreactive (Nonreactive); Hepatitis B Surface Antigen Nonreactive (Nonreactive)
[2016-07-21 11:06] LABS: Hepatitis C Virus Antibody Reactive (Nonreactive)
[2016-07-21 11:51] LABS: Bilirubin,Urine Negative (Negative); Blood,Urine Moderate (Negative); Clarity,Urine Clear (Clear); Color,Urine Yellow (Yellow); Glucose,Urine (UA) Normal (Normal); Ketones,Urine Negative (Negative); Leukocyte Esterase,Urine Negative (Negative); Nitrite,Urine Negative (Negative); PH,Urine 6.5 pH Units (5.0-8.0); Protein,Urine 30 mg/dL (Neg-Trace); Urobilinogen,Urine Normal (Normal)
[2016-07-21 11:54] LABS: Bacteria,Urine None Seen per hpf (None-Few); Hyaline Casts,Urine None Seen per lpf (None-Few); RBC,Urine 15-30 per hpf (0-3); Squamous Epithelial Cell,Urine Few per lpf (None-Few); WBC,Urine 0-3 per hpf (0-3)
[2016-07-21 12:49] LABS: Eosinophils % 0.1 %; Hematocrit 27.2 % (37.5-50.1); Hemoglobin 9.3 g/dL (12.9-16.9); Immature Granulocytes % 0.6 % (0-4); Lymphocytes # 0.7 K/mcL (0.6-4.6); Mean Corpuscular HGB Conc 34.2 g/dL (31.6-35.5); Mean Corpuscular Hemoglobin 29.7 pg (28.0-33.3); Mean Corpuscular Volume 86.9 fL (83.0-100.0); Mean Platelet Volume 9.3 fL (9.4-12.4); Monocytes # 1.6 K/mcL (0.0-1.3); Monocytes % 15.1 %; Neutrophils # 8.1 K/mcL (1.6-8.9); Platelet Count 221 K/mcL (140-400); Red Blood Count 3.13 M/mcL (4.19-5.50); Segmented Neutrophils % 77.2 %
--- NOTE | 2016-07-21 14:23 | Venous Imaging Report ---
UE Venous Duplex Patient Name:Adam Lugo Order Number:[id number] Procedure Date:07/20/2016 Date:1950ge:65 yrs Gender:Male Location:[facility] Room #: 2N04 Lens Finisher:Iesha Mathew RDCS Referring MD:Candelario Graff DO registered nurses:[facility] Reading MD:Vickey Triana MD Primary Indications:Swelling of limb Secondary Indications: Impressions: Bilateral lower extremity: normal superficial and deep exam. Recommendations: Preliminary noted in Pt EMR. Findings Venous Duplex Results: Right: Venous imaging of the upper extremity reveals full patency and normal vessel compressibility of the right jugular, right subclavian, right axillary, right brachial, right cephalic, right basilic, right radial and right ulnar. Doppler signals in the evaluated veins were normal. Left: Venous imaging of the upper extremity reveals full patency and normal vessel compressibility of the left jugular, left subclavian, left axillary, left brachial, left cephalic, left basilic, left radial and left ulnar. Doppler signals in the evaluated veins were normal. Prior Study: No prior study available for comparison. Upper Extremity Venous Duplex Side Vein Compress Spontaneous Flow Augment Right Jugular Normal Yes Phasic Yes Right Subclavian Normal Yes Phasic Yes Right Axillary Normal Yes Phasic Yes Right Brachial Normal Yes Phasic Yes Right Cephalic Normal Yes Phasic Yes Right Basilic Normal Yes Phasic Yes Right Radial Normal Yes Phasic Yes Right Ulnar Normal Yes Phasic Yes Left Jugular Normal Yes Phasic Yes Left Subclavian Normal Yes Phasic Yes Left Axillary Normal Yes Phasic Yes Left Brachial Normal Yes Phasic Yes Left Cephalic Normal Yes Phasic Yes Left Basilic Normal Yes Phasic Yes Left Radial Normal Yes Phasic Yes Left Ulnar Normal Yes Phasic Yes Updated by Vickey Triana MD on 07/21/2016 2:19:23 PM electronically signed on 07/21/2016 2:19:33 PM with status of Final
--- NOTE | 2016-07-21 16:27 | Internal Med Progress Note ---
Date of Encounter: 07/21/16 Time of Encounter: 11:45 - Assessment and plan (1) Acute exacerbation of CHF (congestive heart failure) Current Visit: Yes Status: Acute Assessment and plan: Acute on chronic diastolic heart failure. Continue Lasix. Will switch to oral Lasix. Continue monitoring blood pressure and vital signs. Moderate risk for complications. Renal function is improving. Qualifiers: Congestive heart failure type: diastolic Qualified Code(s): I50.33 - Acute on chronic diastolic (congestive) heart failure (2) Chest pain Current Visit: Yes Status: Resolved Qualifiers: Chest pain type: precordial pain Qualified Code(s): R07.2 - Precordial pain (3) Acute respiratory failure Current Visit: Yes Status: Acute Assessment and plan: Due to acute CHF. Requiring 4 L nasal cannula O2 supplementation. We will wean as tolerated. Qualifiers: Respiratory failure complication: hypoxia Qualified Code(s): J96.01 - Acute respiratory failure with hypoxia (4) Type 2 diabetes mellitus Current Visit: Yes Status: Chronic Assessment and plan: Blood sugars were better controlled this morning but have worsened later. We will adjust insulin regimen accordingly. 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 Continue oxygen supplementation. Qualifiers: COPD type: unspecified COPD Qualified Code(s): J44.9 - Chronic obstructive pulmonary disease, unspecified (6) DVT prophylaxis Current Visit: Yes Status: Acute Assessment and plan: With heparin subcutaneous (7) Hyponatremia Current Visit: Yes Status: Chronic Assessment and plan: Patient likely has chronic hyponatremia. Sodium levels have improved compared to yesterday. Nephrology following. (8) Hypertension Current Visit: Yes Status: Chronic Assessment and plan: Blood pressure remains elevated. We will increase atenolol to 100 mg by mouth daily. Qualifiers: Hypertension type: essential hypertension Qualified Code(s): I10 - Essential (primary) hypertension - Subjective Interval history: Patient was somnolent earlier today but has since improved and is tolerating diet well. Denies any new complaints at this time. No nausea or vomiting. Shortness of breath is improving. - Constitutional Vitals: Temp Pulse Resp BP Pulse Ox 98.4 F 75 18 155/99 95 07/21/16 16:00 07/21/16 16:00 07/21/16 16:07 07/21/16 16:00 07/21/16 16:07 General appearance: Present: cooperative, A&O X 3, no acute distress, answers questions appropriately - Neck Neck exam general surgery: Present: supple, trachea midline. Absent: lymphadenopathy - Cardiovascular Cardiovascular exam: Present: RRR, +S1, +S2. Absent: diastolic murmur, gallop, rubs, systolic murmur - GI/Abdominal GI/Abdominal exam: Present: normal bowel sounds, soft, no peritoneal signs. Absent: distended, tenderness - Neurological Exam Neurological exam: Present: no focal deficits. Absent: facial droop, speech deficit - Skin Skin exam: Present: dry, intact Internal Medicine: Result - Labs CBC & Chem 7: 07/21/16 12:35 07/21/16 12:35 Labs: Short CBC 07/21/16 Range/Units 12:35 WBC 10.5 (4.3-11.1) K/mcL Hgb 9.3 L (12.9-16.9) g/dL Hct 27.2 L (37.5-50.1) % Plt Count 221 (140-400) K/mcL Neutrophils # 8.1 (1.6-8.9) K/mcL BMP 07/20/16 07/20/16 07/21/16 18:14 21:40 01:29 Sodium 124 L 123 L 124 L Potassium 4.1 4.7 H 3.9 Chloride 89 L 91 L 91 L Carbon Dioxide 21 20 26 BUN 44 H 45 H 46 H Creatinine 1.57 H 1.53 H 1.38 H Glucose 156 H 208 H 178 H Calcium 9.3 9.5 8.8 07/21/16 07/21/16 07/21/16 05:47 09:38 12:35 Sodium 126 L 128 L 126 L Potassium 4.7 H 4.4 Chloride 94 L 94 L Carbon Dioxide 22 24 BUN 43 H 39 H Creatinine 1.29 H 1.24 Glucose 108 H 103 H Calcium 8.9 9.2 Cardiac Enzymes 07/20/16 Range/Units 21:40 Troponin I 0.02 (0-0.03) ng/mL Liver Function 07/21/16 Range/Units 09:38 Total Bilirubin 0.6 (0.2-1.2) mg/dL AST 31 (5-34) Units/L ALT 33 (0-55) Units/L Alkaline Phosphatase 127 H (38-126) Units/L Albumin 3.0 L (3.5-5.0) g/dL Urine 07/21/16 Range/Units 11:20 Urine Color Yellow (Yellow) Urine Clarity Clear (Clear) Urine pH 6.5 (5.0-8.0) pH Units Ur Specific [place] 1.010 (1.010-1.025) Urine Protein 30 H (Neg-Trace) mg/dL Urine Glucose (UA) Normal (Normal) mg/dL - Impressions Impressions Retroperitoneum Ultrasound 07/21/16 14:30 IMPRESSION: 1. Single cyst in each kidney, neither requiring follow-up. Otherwise normal sonographic appearance of the kidneys. 2. Incompletely distended urinary bladder due to a Simmons catheter. No focal abnormality. 3. Bilateral pleural effusions. D/ / Jeremiah Martínez MD / Jeremiah Martínez MD Interpreting Provider: Jeremiah Martínez MD - VTE Documentation of Mechanical Device: Graduated compression elastic hosiery Consult Discharge Plan - Plan [facility]errals: [facility] [Primary Care Provider] - 08/03/16 1:30 pm (THIS APPOINTMENT IS AT THE DISCHARGE FOLLOW UP CLINIC) Gaudencio Thao DO [Partnered Physician] - (OFFICE WILL CALL PATIENT AT HOME WITH AN APPOINTMENT) - Attending Attestation This document has been at least partially created by [employer] recognition technology by Dr. Roper. Errors in grammar, wording or other phrases may exist. If errors are found after the documentation is signed, they will be addressed individually in the addendum section of this document when appropriate.
[2016-07-21] MEDS: Furosemide 40 MG TABLET PO SCH (20:06)
[2016-07-22] MEDS: Ipratropium/Albuterol Neb 3 ML IH SCH ×4 (03:55→22:17)
[2016-07-22 04:05] LABS: BUN/Creatinine Ratio 29 (6-26); Blood Urea Nitrogen 35 mg/dL (8-26); Calcium 8.8 mg/dL (8.6-10.8); Carbon Dioxide 25 mEq/L (19-29); Chloride 95 mEq/L (98-109); Glucose 101 mg/dL (70-99); Osmolality,Calculated 276 (280-300); Potassium 3.8 mEq/L (3.5-4.5); Sodium 129 mEq/L (136-145); eGFR For African Americans > 60 (> 60); eGFR For Non-African Americans > 60 (> 60)
[2016-07-22] MEDS: *HR* Heparin 5,000 UNIT/ML VIAL SQ SCH ×3 (05:40→21:39)
[2016-07-22] MEDS: Magnesium Oxide 400 MG TABLET PO SCH ×2 (07:36→21:34)
[2016-07-22] MEDS: amLODIPine 5 MG TABLET PO SCH (07:36)
[2016-07-22] MEDS: Aspirin Enteric Coated 81 MG Tablet PO SCH (07:37)
[2016-07-22] MEDS: Lisinopril 20 MG TABLET PO SCH (07:37)
[2016-07-22] MEDS: Furosemide 40 MG TABLET PO SCH ×2 (07:37→16:54)
[2016-07-22] MEDS: Insulin DETEMIR 100 UNIT/ML X5UNITS SQ SCH ×2 (08:10→21:39)
[2016-07-22] MEDS: Insulin LISPRO 300 UNITS/3 ML VIAL SQ SCH ×4 (08:10→21:37)
--- NOTE | 2016-07-22 08:33 | Nephrology Progress Note ---
Date of Encounter: 07/22/16 Time of Encounter: 08:33 - Assessment and Plan (1) Hyponatremia Current Visit: Yes Status: Chronic Patient was determined to have sodium of 125 at [place] and 120 at [place] upon arrival. Sodium levels have been 128, 126, 129 overnight, only intervention continues to be lasix 40mg bid. Urine Cr 73, Urine Na <20, Urine uric acid 14, Urine urea nitrogen 552 Urine osm 286L, Serum osm 280, Specific gravity 1.010, moderate blood 15-30 on UA yesterday. Urine output 2875mL/24 hours Renal ultrasound was negative for hydronephrosis, shadowing calculi, or perinephric fluid. There was noted a cyst in the right upper pole and left lower pole. Prevoid volume 111 mL, and postvoid 86mL, indicating incompletely distended urinary bladder due to phelps catheter. Suspect hyponatremia etiology is multifactorial and could possibly be chronic with a component of SIADH. Possibly due to volume overload status vs polydypsia vs renal insufficiency with unknown basline vs home medication HCTZ and psych meds. Continue with fluid restriction 1.5L/d and diuresis with lasix. Monitor kidney function and strict I&Os. We will continue to follow through tomorrow, may consider signing off if sodium returns to >130. Continue with renal protect strategy, avoid nephrotoxins, no urgent dialysis needed Follow up with Dr. Ramos in 3 weeks, repeat BMP in 1 week to monitor electrolyte and kidney function. (2) CHF (congestive heart failure) Current Visit: Yes Status: Acute Patient with known history of CHF presented to the [place] with complaint of chest pain and dyspnea in addition to swelling. Echo returned back normal LV at 65% and moderate LV diastolic dysfunction. Continue per plan of Hospitalist. Qualifiers: Congestive heart failure type: unspecified congestive heart failure type Congestive heart failure chronicity: acute on chronic Qualified Code(s): I50.9 - Heart failure, unspecified (3) Hypertension Current Visit: Yes Status: Chronic Known history of hypertension Bp 145/80 Continue per plan of Hospitalist. Discontinue home hctz as this may be contributing to hyponatremia. Qualifiers: Hypertension type: essential hypertension Qualified Code(s): I10 - Essential (primary) hypertension (4) Type 2 diabetes mellitus Current Visit: Yes Status: Chronic Known history of type II diabetes Continue per Hospitalist plan Qualifiers: Diabetes mellitus complication status: with kidney complications Diabetes mellitus complication detail: with chronic kidney disease Diabetes mellitus long-term insulin use: with long-term use Chronic kidney disease stage: stage 2 (mild) Qualified Code(s): E11.22 - Type 2 diabetes mellitus with diabetic chronic kidney disease; N18.2 - Chronic kidney disease, stage 2 (mild); Z79.4 - FPC (current) use of insulin (5) Schizophrenia Current Visit: Yes Status: Acute Known history of paranoid schizophrenia upon review of records from [place] and history fo si. On home Celexa, Haloperidol, and Seroquel Medications may be contributing to hyponatremia, however, continue [facility] stable home medication regiment as hyponatremia correcting. Qualifiers: Schizophrenia type: paranoid schizophrenia Qualified Code(s): F20.0 - Paranoid schizophrenia (6) Swelling of both upper extremities Current Visit: Yes Status: Acute Exam continues to reveal 1+ pitting edema bilateral upper extremities. Venous doppler was negative for DVTs. Subjective Principal diagnosis: Hyponatremia Interval history: Patient reports doing well overnight, reports he feels "warm". Upon further questioning since he appears more alert and well than at the end of the day yesterday, patient denies fevers, sweats, or chills and reports warmth feeling is very good. No overnight events. Patient at 4L nasal cannula and titrating down. Patient denies fevers, chills, sweats, changes in vision or hearing, headaches, nausea, vomiting, chest pain, shortness of breath, abdominal pain, changes in bowels or bladder, weakness, or loss of sensation. Sodium levels 128, 126, 129 over past 24 hours. Objective - Vital Signs Vital signs: Vital Signs Temp Pulse Resp BP Pulse Ox 07/22/16 07:45 98.6 F 64 16 145/80 92 07/22/16 07:24 98.6 F 64 16 145/80 92 07/22/16 03:56 16 96 07/22/16 03:45 98.7 F 66 16 149/81 92 07/21/16 23:11 97.9 F 65 16 144/67 92 07/21/16 21:03 18 96 07/21/16 20:40 99.5 F 75 16 164/79 98 07/21/16 16:07 18 95 07/21/16 16:00 98.4 F 75 18 155/99 97 07/21/16 15:42 72 18 151/91 100 07/21/16 15:14 74 07/21/16 11:37 74 07/21/16 11:25 73 18 161/98 98 07/21/16 09:49 18 100 07/21/16 09:15 68 Intake and Output 07/21/16 07/22/16 07/22/16 23:59 07:59 15:59 Intake Total 100 / 100 0 / 0 Output Total 500 / 500 375 / 375 Balance -400 / -400 -375 / -375 Intake: Oral 100 / 100 0 / 0 Output: Catheter 500 / 500 375 / 375 Other: Meal NPO for US Weight 96.1 kg Blood Glucose* 274 190 Patient Weight 07/22/16 23:59 Weight 96.1 kg - General Appearance General appearance: Present: well-developed, well-nourished, appears started age , obese EENT: Present: PERRL, mucous membranes moist, hearing intact, vision intact Neck: Present: no JVD, no carotid bruit, supple Respiratory: Present: course breath sounds Cardiology: Present: no murmurs, regular rate, regular rhythm, normal S1, normal S2 Additional Comments: 1+ pitting edema bilateral upper ext, minimal bilateral lower extremities edema Gastrointestinal: Present: normoactive bowel sounds, no tenderness, no guarding , no organomegaly, distended Integumentary: Present: no rash, warm and dry Neurologic: Present: no focal deficit, no asterixis, alert and oriented x3, strength 5/5, CN 3-12 intact Musculoskeletal: Present: no deformities, no erythema, no cyanosis, no clubbing Psychiatric: Present: mood/affect appropriate, cooperative - Lab 07/21/16 12:35 07/22/16 03:42 Most recent lab results Calcium 8.8 mg/dL (8.6-10.8) 07/22/16 03:42 Magnesium 1.8 mg/dL (1.6-2.6) 07/20/16 05:07 Urine Creatinine 73 mg/dL 07/20/16 09:29 Urine Sodium < 20.0 mEq/L 07/20/16 09:29 - VTE Documentation of Mechanical Device: Graduated compression elastic hosiery Consult Discharge Plan - Plan [facility]errals: [facility]Primary Care Provider[facility] - 08/03/16 1:30 pm (THIS APPOINTMENT IS AT THE DISCHARGE FOLLOW UP CLINIC) Gaudencio Thao DO [Partnered Physician] - (OFFICE WILL CALL PATIENT AT HOME WITH AN APPOINTMENT)
[2016-07-22] MEDS ORDERED: Haloperidol Decanoate 50 MG/ML VIAL IM ONE (10:48)
--- NOTE | 2016-07-22 13:27 | Internal Med Progress Note ---
Date of Encounter: 07/22/16 Time of Encounter: 10:15 - Assessment and plan (1) Acute exacerbation of CHF (congestive heart failure) Current Visit: Yes Status: Acute Assessment and plan: clinically improving. Doing well overall. Not requiring O2 supplementation. Continue Lasix. Low risk for complications . Awaiting placement to skilled rehabilitation. Qualifiers: Congestive heart failure type: diastolic Qualified Code(s): I50.33 - Acute on chronic diastolic (congestive) heart failure (2) Chest pain Current Visit: Yes Status: Resolved Qualifiers: Chest pain type: precordial pain Qualified Code(s): R07.2 - Precordial pain (3) Acute respiratory failure Current Visit: Yes Status: Resolved Qualifiers: Respiratory failure complication: hypoxia Qualified Code(s): J96.01 - Acute respiratory failure with hypoxia (4) Type 2 diabetes mellitus Current Visit: Yes Status: Chronic Assessment and plan: Blood sugars improved compared to yesterday. We will continue to monitor and adjust insulin regimen. Continue diabetic diet. 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 Qualifiers: COPD type: unspecified COPD Qualified Code(s): J44.9 - Chronic obstructive pulmonary disease, unspecified (6) DVT prophylaxis Current Visit: Yes Status: Acute (7) Hyponatremia Current Visit: Yes Status: Chronic Assessment and plan: Sodium 129 today. (8) Hypertension Current Visit: Yes Status: Chronic Assessment and plan: Remains uncontrolled. For now continue atenolol 100 mg. Continue to monitor blood pressure. Qualifiers: Hypertension type: essential hypertension Qualified Code(s): I10 - Essential (primary) hypertension - Subjective Interval history: Patient is sitting up in chair. Has had breakfast without any issues. Denies any shortness of breath at this time. Feeling good overall. No chest pain. No new complaints at this time - Constitutional Vitals: Temp Pulse Resp BP Pulse Ox 98.4 F 76 18 163/83 93 07/22/16 12:00 07/22/16 12:00 07/22/16 12:00 07/22/16 12:00 07/22/16 12:00 General appearance: Present: cooperative, A&O X 3, no acute distress, answers questions appropriately - Respiratory Respiratory exam: Present: CTAB. Absent: accessory muscle use, rales, rhonchi, wheezes - Cardiovascular Cardiovascular exam: Present: RRR, +S1, +S2. Absent: diastolic murmur, gallop, rubs, systolic murmur - GI/Abdominal GI/Abdominal exam: Present: normal bowel sounds, soft, no peritoneal signs. Absent: distended, tenderness - Extremities Exam Extremities exam: Present: pedal edema (Bilateral), warm, radial pulses palpable and symetrical. Absent: calf tenderness, cyanotic Internal Medicine: Result - Labs CBC & Chem 7: 07/21/16 12:35 07/22/16 03:42 Labs: BMP 07/22/16 03:42 Sodium 129 L Potassium 3.8 Chloride 95 L Carbon Dioxide 25 BUN 35 H Creatinine 1.19 Glucose 101 H Calcium 8.8 - Impressions Impressions Retroperitoneum Ultrasound 07/21/16 14:30 IMPRESSION: 1. Single cyst in each kidney, neither requiring follow-up. Otherwise normal sonographic appearance of the kidneys. 2. Incompletely distended urinary bladder due to a Simmons catheter. No focal abnormality. 3. Bilateral pleural effusions. D/ / Jeremiah Martínez MD / Jeremiah Martínez MD Interpreting Provider: Jeremiah Martínez MD Liver Ultrasound 07/22/16 10:00 IMPRESSION: 1. No evidence of hepatic cirrhosis. 2. Incidental right pleural effusion and trace perihepatic ascites. 3. Possible mobile gallstone. No biliary dilation. No evidence of acute cholecystitis. D/ / 07/22/2016 12:57:15 Dwayne Malagon MD / tkyer Interpreting Provider: Dwayne Malagon MD - VTE Documentation of Mechanical Device: Graduated compression elastic hosiery Consult Discharge Plan - Plan [facility]errals: [facility] [Primary Care Provider] - 08/03/16 1:30 pm (THIS APPOINTMENT IS AT THE DISCHARGE FOLLOW UP CLINIC) Gaudencio Thao, [Partnered Physician] - (OFFICE WILL CALL PATIENT AT HOME WITH AN APPOINTMENT) - Attending Attestation This document has been at least partially created by [employer] recognition technology by Dr. Roper. Errors in grammar, wording or other phrases may exist. If errors are found after the documentation is signed, they will be addressed individually in the addendum section of this document when appropriate.
[2016-07-23] MEDS: Ipratropium/Albuterol Neb 3 ML IH SCH ×3 (05:00→15:58)
[2016-07-23] MEDS: *HR* Heparin 5,000 UNIT/ML VIAL SQ SCH (05:59)
[2016-07-23 06:10] LABS: BUN/Creatinine Ratio 24 (6-26); Blood Urea Nitrogen 24 mg/dL (8-26); Calcium 9.5 mg/dL (8.6-10.8); Carbon Dioxide 26 mEq/L (19-29); Chloride 98 mEq/L (98-109); Glucose 90 mg/dL (70-99); Osmolality,Calculated 280 (280-300); Potassium 3.7 mEq/L (3.5-4.5); Sodium 133 mEq/L (136-145); eGFR For African Americans > 60 (> 60); eGFR For Non-African Americans > 60 (> 60)
--- NOTE | 2016-07-23 08:18 | Nephrology Progress Note ---
<Candelario Graff - Last Filed: 07/23/16 09:27> Date of Encounter: 07/23/16 Time of Encounter: 08:17 - Assessment and Plan (1) Hyponatremia Current Visit: Yes Status: Chronic Patient was determined to have sodium of 125 at [place] and 120 at [place] upon arrival. Sodium levels have been 129, 130, 133 overnight, only intervention continues to be lasix 40mg bid. Urine Cr 73, Urine Na <20, Urine uric acid 14, Urine urea nitrogen 552 Urine osm 286L, Serum osm 280, Specific gravity 1.010, moderate blood 15-30 on UA, likely traumatic from phelps. Renal ultrasound was negative for hydronephrosis, shadowing calculi, or perinephric fluid. There was noted a cyst in the right upper pole and left lower pole. Prevoid volume 111 mL, and postvoid 86mL, indicating incompletely distended urinary bladder due to phelps catheter. Urine output 1410mL/24 hours Suspect hyponatremia etiology is multifactorial and could possibly be chronic with a component of SIADH. Possibly due to volume overload status vs polydypsia vs renal insufficiency with unknown basline vs home medication HCTZ and psych meds. Continue with fluid restriction 1.5L/d and diuresis with lasix. Monitor kidney function and strict I&Os. Continue with renal protect strategy, avoid nephrotoxins, no urgent dialysis needed Follow up with Dr. Ramos in 3 weeks, repeat BMP in 1 week to monitor electrolyte and kidney function. (2) Hypertension Current Visit: Yes Status: Chronic Known history of hypertension Bp 147-166/78-83 overnight Continue per plan of Hospitalist. Increased home dose of atenolol to 100mg qhs yesterday. Discontinue home hctz as this may be contributing to hyponatremia. Qualifiers: Hypertension type: essential hypertension Qualified Code(s): I10 - Essential (primary) hypertension (3) CHF (congestive heart failure) Current Visit: Yes Status: Acute Patient with known history of CHF presented to the [facility] with complaint of chest pain and dyspnea in addition to swelling. Echo returned back normal LV at 65% and moderate LV diastolic dysfunction. Continue per plan of Hospitalist. 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 On home Celexa, Haloperidol, and Seroquel Medications may be contributing to hyponatremia, however, continue [facility] stable home medication regiment as hyponatremia correcting. Qualifiers: Schizophrenia type: paranoid schizophrenia Qualified Code(s): F20.0 - Paranoid schizophrenia (6) Swelling of both upper extremities Current Visit: Yes Status: Acute Exam reveals minimal pitting edema bilateral upper extremities, improved from yesterday. Venous doppler was negative for DVTs. Subjective Principal diagnosis: Hyponatremia Interval history: Patient reports doing well overnight, no new complaints. Patient denies fevers , chills, sweats, nausea, vomtiing, headaches, lightheadedness, troubles with walking, chest pain, shortness of [place], abdominal pain, changes in bowels or bladder, weakness, or loss of sensation. Sodium levels have been 129, 1130, 133 over the past 24 hours. Bp has been mildly elevated above goal, 147-166/78-83. Objective - Vital Signs Vital signs: Vital Signs Temp Pulse Resp BP Pulse Ox 07/23/16 07:17 98.4 F 60 18 166/83 98 07/23/16 05:00 18 95 07/23/16 04:47 98.2 F 58 18 157/80 96 07/23/16 00:44 99.1 F 57 16 147/78 95 07/22/16 22:17 16 96 07/22/16 21:35 73 07/22/16 18:44 98.3 F 74 16 165/83 95 07/22/16 16:35 98.3 F 74 18 162/76 92 07/22/16 16:30 98.3 F 74 18 162/76 92 07/22/16 15:57 16 92 07/22/16 12:00 98.4 F 76 18 163/83 93 07/22/16 11:05 98.4 F 76 18 163/83 93 07/22/16 10:00 98.6 F 64 16 145/80 92 Intake and Output 07/22/16 07/23/16 07/23/16 23:59 07:59 15:59 Intake Total 1290 / 1290 Output Total 1450 / 1450 Balance -160 / -160 Intake: Oral 1290 / 1290 Output: Catheter 1450 / 1450 Other: Meal Dinner Percent of Meal Consumed 80% Weight 96 kg Blood Glucose* 263 87 Patient Weight 07/23/16 23:59 Weight 96 kg - General Appearance General appearance: Present: well-developed, well-nourished, appears started age , obese EENT: Present: PERRL, mucous membranes moist Neck: Present: no JVD, no carotid bruit, supple Respiratory: Present: clear Cardiology: Present: no murmurs, regular rate, regular rhythm, normal S1, normal S2 Additional Comments: minimal pitting edema bilateral upper extremities, no lower extremity edema noted. Gastrointestinal: Present: normoactive bowel sounds, no tenderness, no guarding , no masses Integumentary: Present: no rash, warm and dry Neurologic: Present: no focal deficit, no asterixis, alert and oriented x3, gait normal, strength 5/5, CN 3-12 intact Musculoskeletal: Present: no deformities, no erythema, no cyanosis, no clubbing Psychiatric: Present: mood/affect appropriate, cooperative - Lab 07/21/16 12:35 07/23/16 05:49 Most recent lab results Calcium 9.5 mg/dL (8.6-10.8) 07/23/16 05:49 Magnesium 1.8 mg/dL (1.6-2.6) 07/20/16 05:07 Urine Creatinine 73 mg/dL 07/20/16 09:29 Urine Sodium < 20.0 mEq/L 07/20/16 09:29 - VTE Documentation of Mechanical Device: Graduated compression elastic hosiery Consult Discharge Plan - Plan Instructions: Heart Failure (DC), Acute Respiratory Distress Syndrome (DC), Chronic Obstructive Pulmonary Disease (DC) [facility]errals: [facility] [Primary Care Provider] - (PATIENT IS [facility]ING TO THE [facility] FOR [facility]) Gaudencio Thao, DO [Partnered Physician] - (OFFICE WILL CALL PATIENT AT HOME WITH AN APPOINTMENT) <Farhad Davis - Last Filed: 07/23/16 14:30> Date of Encounter: 07/23/16 Objective - Vital Signs Vital signs: Vital Signs Temp Pulse Resp BP Pulse Ox 07/23/16 11:45 98.1 F 68 18 153/76 97 07/23/16 11:17 98.1 F 68 18 153/76 97 07/23/16 10:41 18 95 07/23/16 08:00 98.4 F 60 18 166/83 98 07/23/16 07:17 98.4 F 60 18 166/83 98 07/23/16 05:00 18 95 07/23/16 04:47 98.2 F 58 18 157/80 96 07/23/16 00:44 99.1 F 57 16 147/78 95 07/22/16 22:17 16 96 07/22/16 21:35 73 07/22/16 18:44 98.3 F 74 16 165/83 95 07/22/16 16:35 98.3 F 74 18 162/76 92 07/22/16 16:30 98.3 F 74 18 162/76 92 07/22/16 15:57 16 92 Intake and Output 07/22/16 07/23/16 07/23/16 23:59 07:59 15:59 Intake Total 1290 / 1290 560 / 560 Output Total 1450 / 1450 900 / 900 Balance -160 / -160 -340 / -340 Intake: Oral 1290 / 1290 560 / 560 Output: Catheter 1450 / 1450 900 / 900 Other: Meal Dinner Lunch Percent of Meal Consumed 80% 90% Weight 96 kg Blood Glucose* 263 87 290 Patient Weight 07/23/16 23:59 Weight 96 kg - Lab 07/21/16 12:35 07/23/16 05:49 Most recent lab results Calcium 9.5 mg/dL (8.6-10.8) 07/23/16 05:49 Magnesium 1.8 mg/dL (1.6-2.6) 07/20/16 05:07 Urine Creatinine 73 mg/dL 07/20/16 09:29 Urine Sodium < 20.0 mEq/L 07/20/16 09:29 - Attending Attestation I examined this patient and my medical decision-making was reviewed with the LANDFILL ATTENDANT/PA/Advanced Practice Nurse/Resident Physician. I agree with the documented findings, disposition and treatment plan as described except to the extent set forth below. Interim events noted; 65 yo AAmale with hyponatremia and DILSHAD both of which have drastically improved. Pt seen and examined feeling pretty good with no complaints. Will sign off with sodium now up to 133 off HCTZ. Followup as noted
[2016-07-23] MEDS: amLODIPine 5 MG TABLET PO SCH (08:28)
[2016-07-23] MEDS: Lisinopril 20 MG TABLET PO SCH (08:28)
[2016-07-23] MEDS: Insulin DETEMIR 100 UNIT/ML X5UNITS SQ SCH (08:28)
[2016-07-23] MEDS: Magnesium Oxide 400 MG TABLET PO SCH (08:28)
[2016-07-23] MEDS: Furosemide 40 MG TABLET PO SCH (08:28)
[2016-07-23] MEDS: Aspirin Enteric Coated 81 MG Tablet PO SCH (08:28)
[2016-07-23] MEDS: Insulin LISPRO 300 UNITS/3 ML VIAL SQ SCH ×2 (08:29→11:53)
[2016-07-23 11:22] VITALS: BP 153/76
--- NOTE | 2016-07-23 13:45 | Discharge Summary ---
Date of Encounter: 07/23/16 Time of Encounter: 13:43 - Discharge Diagnosis (1) Acute exacerbation of CHF (congestive heart failure) Priority: Primary Status: Acute Qualifiers: Congestive heart failure type: diastolic Qualified Code(s): I50.33 - Acute on chronic diastolic (congestive) heart failure (2) Chest pain Priority: Secondary Status: Resolved Qualifiers: Chest pain type: precordial pain Qualified Code(s): R07.2 - Precordial pain (3) Acute respiratory failure Priority: Secondary Status: Resolved Qualifiers: Respiratory failure complication: hypoxia Qualified Code(s): J96.01 - Acute respiratory failure with hypoxia (4) Type 2 diabetes mellitus Priority: Secondary Status: Chronic Qualifiers: Diabetes mellitus complication status: with kidney complications Diabetes mellitus complication detail: with chronic kidney disease 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 Chronic kidney disease stage: stage 2 (mild) Qualified Code(s): E11.22 - Type 2 diabetes mellitus with diabetic chronic kidney disease; N18.2 - Chronic kidney disease, stage 2 (mild); 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 (5) COPD (chronic obstructive pulmonary disease) Priority: Secondary Status: Chronic Qualifiers: COPD type: unspecified COPD Qualified Code(s): J44.9 - Chronic obstructive pulmonary disease, unspecified (6) DVT prophylaxis Priority: Secondary Status: Acute (7) Hyponatremia Priority: Secondary Status: Chronic (8) Hypertension Priority: Secondary Status: Chronic Qualifiers: Hypertension type: essential hypertension Qualified Code(s): I10 - Essential (primary) hypertension - Discharge Medications Home Medications: Acetaminophen [Tylenol Arthritis] 650 mg PO TID PRN 07/19/16 [History] Amantadine [Symmetrel] 100 mg PO BID 07/19/16 [History] Aspirin [Lo-Dose Aspirin EC] 81 mg PO DAILY 07/19/16 [History] Cholecalciferol (D-3) [Vitamin D] 3,000 unit PO DAILY 07/19/16 [History] Citalopram Hydrobromide [Celexa] 20 mg PO DAILY 07/19/16 [History] Docusate [Colace] 100 mg PO BID 07/19/16 [History] Galantamine HBr [Razadyne ER] 24 mg PO DAILY 07/19/16 [History] Haloperidol Decanoate 100 mg IM Q2W 07/19/16 [History] Insulin ASPART [Novolog Flexpen] 3 - 8 unit SQ TIDWM 07/19/16 [History] Insulin Glargine [Lantus] 25 unit SQ HS 07/19/16 [History] Lisinopril [Zestril] 40 mg PO DAILY 07/19/16 [History] Magnesium Oxide [Mag-Ox] 400 mg PO BID 07/19/16 [History] Metformin HCl [Fortamet] 1,000 mg PO BID 07/19/16 [History] Oxybutynin [Ditropan] 5 mg PO BID 07/19/16 [History] Polyvinyl Alcohol/Povidone [Artificial Tears Drops] 1 drop OP QID PRN 07/19/16 [ History] Potassium Chloride 20% [Potassium Chloride] 10 meq PO DAILY 07/19/16 [History] Quetiapine Fumarate [Seroquel] 300 mg PO HS 07/19/16 [History] amLODIPine [Norvasc] 10 mg PO DAILY 07/19/16 [History] Atenolol [Tenormin] 100 mg PO HS tablet 07/23/16 [Rx] Furosemide [Lasix] 40 mg PO BIDDIURETIC tablet 07/23/16 [Rx] Allergies/Adverse Reactions: Allergies chlorpromazine [From Thorazine] Allergy (Verified 07/19/16 19:56) Anaphylaxis Procedures/tests Complete & Pending: Procedures Performed prior 72 hours Category Date Time Status US liver [US] Routine Exams 07/22/16 10:00 Completed US retroperitoneal comp [US] Routine Exams 07/21/16 14:30 Completed Date of admission: 07/19/16 22:21 Primary care physician: [facility] Consults: 07/20/16 10:46 Consult to Nephrology [CONS] Routine Consulting Provider: Kidney Shannan/TIM/DAVID/PALMRE Reason for Consult: Hyponatremia Call Completed: Yes 07/20/16 15:41 Consult to Truck Bench Mechanic [CONS] Routine Reason for SW Consult: discharge planning 07/21/16 10:37 Consult to Occupational Therapy [CONS] Routine Comment: Evaluate, develop and implement POC Reason for Consult: Evaluate, develop and implement POC Consult to Physical Therapy [CONS] Routine Comment: Evaluate, develop and implement POC Reason for Consult: Evaluate, develop and implement POC Consult to Truck Bench Mechanic [CONS] Routine Reason for SW Consult: Discharge plan Discharging clinician: Mook Roper Anticipated date of discharge: 07/23/16 - Patient Status Disposition: Transfer Other Condition: Good Functional capacity at discharge: uses cane/walker Overall status at discharge: patient is progressing back to baseline - Discharge Instructions Instructions: Heart Failure (DC), Acute Respiratory Distress Syndrome (DC), Chronic Obstructive Pulmonary Disease (DC) Follow Up With: [facility] [Primary Care Provider] - (PATIENT IS GOING TO THE [facility] FOR REHAB) Guadencio Thao DO [Partnered Physician] - (OFFICE WILL CALL PATIENT AT HOME WITH AN APPOINTMENT) Additional Instructions: Follow up outpatient with Nephrology in 1-2 weeks - Diet and Activity Activity: as per physical therapy Diet: low fat, low cholesterol, low salt diet, other (Fluid restriction to 1500 ml/ day) Hospital course: Mr. Lugo is a 65 year old male patient with history of COPD, diabetes mellitus CHF hepatitis C and schizophrenia who was transferred here from [facility] with chest pain and shortness of breath. He was admitted here and treated for acute CHF exacerbation as he had an elevated BNP. He was initially placed on BiPAP and then transitioned to nasal cannula. He received IV Lasix with improvement in his symptoms. He is now no longer requiring O2 supplementation. He is saturating well on room air. He is tolerating oral Lasix well. On presentation he also had acute kidney injury, hyponatremia. Nephrology was consulted. Patient's hyponatremia has now resolved. Could be related to use of hydrochlorothiazide at home. This medication has now been stopped. Patient's renal function has also returned to normal. He will continue to use Lasix. He is also treated for COPD with bronchodilator nebs. He is clinically stable for discharge. Physical therapy evaluated patient. Recommended placement to skilled rehabilitation. This is currently being worked on by psych social worker through the [facility] system. - Time Spent with Patient Total time spent providing and/or coordinating discharge services: Greater than 30 minutes (45 min) - Constitutional Vitals: Temp Pulse Resp BP Pulse Ox 98.1 F 68 18 153/76 97 07/23/16 11:45 07/23/16 11:45 07/23/16 11:45 07/23/16 11:45 07/23/16 11:45 General appearance: Present: cooperative, A&O X 3, pleasant, no acute distress, answers questions appropriately - Respiratory Respiratory exam: Present: CTAB. Absent: accessory muscle use, rales, rhonchi, wheezes - Cardiovascular Cardiovascular exam: Present: RRR, +S1, +S2. Absent: diastolic murmur, gallop, rubs, systolic murmur - GI/Abdominal GI/Abdominal exam: Present: normal bowel sounds, soft, no peritoneal signs. Absent: distended, tenderness - Extremities Exam Extremities exam: Present: pedal edema (trace), warm, radial pulses palpable and symetrical. Absent: calf tenderness, cyanotic - Skin Skin exam: Present: dry, intact - VTE Documentation of Mechanical Device: Graduated compression elastic hosiery - Attending Attestation This document has been at least partially created by [employer] voice recognition technology by Dr. Roper. Errors in grammar, wording or other phrases may exist. If errors are found after the documentation is signed, they will be addressed individually in the addendum section of this document when appropriate.
--- NOTE | 2016-07-23 15:13 | Physician Discharge Referral ---
Extended[facility] Referral Info Provider in Charge after Transfer: PCP Institutional Level of Care: Skilled - Diagnosis (1) Acute exacerbation of CHF (congestive heart failure) Priority: Primary Status: Acute (2) Chest pain Priority: Secondary Status: Resolved (3) Acute respiratory failure Priority: Secondary Status: Resolved (4) Type 2 diabetes mellitus Priority: Secondary Status: Chronic (5) COPD (chronic obstructive pulmonary disease) Priority: Secondary Status: Chronic (6) DVT prophylaxis Priority: Secondary Status: Acute (7) Hyponatremia Priority: Secondary Status: Chronic (8) Hypertension Priority: Secondary Status: Chronic Prognosis: Fair Aware of Diagnosis: Patient - Transfer Medications Home Medications: Acetaminophen [Tylenol Arthritis] 650 mg PO TID PRN 07/19/16 [History] Amantadine [Symmetrel] 100 mg PO BID 07/19/16 [History] Aspirin [Lo-Dose Aspirin EC] 81 mg PO DAILY 07/19/16 [History] Cholecalciferol (D-3) [Vitamin D] 3,000 unit PO DAILY 07/19/16 [History] Citalopram Hydrobromide [Celexa] 20 mg PO DAILY 07/19/16 [History] Docusate [Colace] 100 mg PO BID 07/19/16 [History] Galantamine HBr [Razadyne ER] 24 mg PO DAILY 07/19/16 [History] Haloperidol Decanoate 100 mg IM Q2W 07/19/16 [History] Insulin ASPART [Novolog Flexpen] 3 - 8 unit SQ TIDWM 07/19/16 [History] Insulin Glargine [Lantus] 25 unit SQ HS 07/19/16 [History] Lisinopril [Zestril] 40 mg PO DAILY 07/19/16 [History] Magnesium Oxide [Mag-Ox] 400 mg PO BID 07/19/16 [History] Metformin HCl [Fortamet] 1,000 mg PO BID 07/19/16 [History] Oxybutynin [Ditropan] 5 mg PO BID 07/19/16 [History] Polyvinyl Alcohol/Povidone [Artificial Tears Drops] 1 drop OP QID PRN 07/19/16 [ History] Potassium Chloride 20% [Potassium Chloride] 10 meq PO DAILY 07/19/16 [History] Quetiapine Fumarate [Seroquel] 300 mg PO HS 07/19/16 [History] amLODIPine [Norvasc] 10 mg PO DAILY 07/19/16 [History] Atenolol [Tenormin] 100 mg PO HS tablet 07/23/16 [Rx] Furosemide [Lasix] 40 mg PO BIDDIURETIC tablet 07/23/16 [Rx] Allergies/Adverse Reactions: Allergies chlorpromazine [From Thorazine] Allergy (Verified 07/19/16 19:56) Anaphylaxis - Respiratory Orders Smoking Cessation: Smoking cessation has been advised. For more information, call the [place] [employer] Quit Line at [phone]-NOW. - Advance Directives Code Status: Full Code - Mobility Orders Other (per PT) - Rehabiliation Orders Rehab Orders: Evaluation for Physical Therapy, Evaluation for Occupational Therapy - Diet Orders Cardiac (FLuid restriction to 1500 ml/day) CERTIFICATION: I certify that the transfer of the above named patient to an Extended Care Facility is necessary for the continuing treatment of the diagnosis listed. The above information is true and accurate reflection of patient's current condition. Confidential - Redisclosure prohibited without a patient's written consent.
== END 2016-07-23 16:45 | disposition other institution (70) | DRG 291 ==
LOC: EMEROO 19:51 → 2NNU 22:21 → SUATTDRO 22:21 → 2NNU 23:08
PROVIDERS: ADMIT Internal Medicine; ATTEND Internal Medicine